=== PATIENT | female | born 1960 | race Caucasian/White ===

== ENCOUNTER 2016-08-23 10:01 | Outpatient (CLI) | payer BC, OTHER | END 2016-08-23 10:02 | disposition home or self-care (01) | DX: E78.4 Other hyperlipidemia (principal); R73.09 Other abnormal glucose; Z20.828 Contact with and (suspected) exposure to other viral communicable diseases ==

== ENCOUNTER 2017-02-24 13:35 | Outpatient (CLI) | payer OTHER ==
--- NOTE | 2017-02-25 08:50 | XRAY Report ---
TWO VIEW LEFT FOREARM: 02/24/2017 CLINICAL INDICATION: Pain status post fall. Frontal and lateral views of the left forearm demonstrate a minimally displaced proximal radial shaft fracture, without extension to the radial articular surface. No other fracture is seen. Soft tissu e swelling is noted. IMPRESSION: MINIMALLY DISPLACED PROXIMAL RADIAL SHAFT FRACTURE. JOB #: [id number] EXT JOB #:[id number]
== END 2017-02-24 13:36 | disposition home or self-care (01) ==
LOC: DI 13:35
PROVIDERS: ATTEND Internal Medicine
DX: S52.182A Other fracture of upper end of left radius, initial encounter for closed fracture (principal)

== ENCOUNTER 2019-08-29 09:37 | Day surgery (SDC) | payer OTHER ==
[~2019-08-29 09:37] MED LIST: SODIUM/POTASSIUM/MAG SULFATES 354 ML PREP KIT PO SCH
[2019-08-29] MEDS ORDERED: fentaNYL 250 MCG/5 ML VIAL IVP ONE (09:38)
[2019-08-29] MEDS ORDERED: MIDAZOLAM 2 MG/2 ML VIAL IVP ONE (09:38)
[2019-08-29] MEDS ORDERED: LACTATED RINGERS 1,000 ML IV ONE (09:48)
[2019-08-29 12:59] VITALS: BP 121/64
== END 2019-08-29 09:38 | disposition home or self-care (01) ==
LOC: SDS 09:37
PROVIDERS: ATTEND Surgery
PROC: 0DJD8ZZ Inspection of Lower Intestinal Tract, Via Natural or Artificial Opening Endoscopic (ICD-10-PCS; principal; 2019-08-29 11:00)
DX: Z12.11 Encounter for screening for malignant neoplasm of colon (principal); K64.8 Other hemorrhoids; Z80.3 Family history of malignant neoplasm of breast
CPT/HCPCS: 45378; A9270; J3010; J7120